=== PATIENT | female | born 1975 | race American Indian/Alaskan Native ===

== ENCOUNTER 2017-05-27 01:24 | Emergency (ER) | payer MEDICAID, OTHER ==
[2017-05-27 01:24] VITALS: BMI 23.8
[2017-05-27 01:39] VITALS: BP 128/81; PULSE 91; RESP 20; TEMP 98.7; O2SAT 97
[2017-05-27] MEDS ORDERED: Tetracaine 0.5% Ophth (OR ONLY) ONE (01:57)
[2017-05-27] MEDS ORDERED: Fluorescein 1 mg Ophthalmic Strip ONE (01:58)
[2017-05-27] MEDS ORDERED: Tetracaine 0.5% Ophth 2 ML BOTTLE OU ONE (02:00)
[2017-05-27] MEDS ORDERED: Fluorescein 1 mg Ophthalmic Strip OU ONE (02:00)
[2017-05-27] MEDS ORDERED: Tobramycin 0.3% OPH OINT OU STA (02:00)
--- NOTE | 2017-05-27 02:04 | C.PDOC ---
History Of Present Illness 42 y/o female presents to the ED complaining of left eye pain since this morning. States she slept with her contacts in last night and woke up with crusting and pain on opening the eye. No fever or chills. No foreign body sensation. (Mora Rincon) History Per: Patient History/Exam Limitations: no limitations Onset/Duration Of Symptoms: Days (x1) Current Symptoms Are (Timing): Still Present Wears Contact Lens?: Yes Time Seen by Provider: 05/27/17 01:47 Chief Complaint (Nursing): Eye Problem Past Medical History Reviewed: Historical Data, Nursing Documentation, Vital Signs - Medical History PMH: Anemia, HTN Denies: Diabetes, Hepatitis, HIV, Chronic Kidney Disease, Seizures, Sexually Transmitted Disease Other Surgeries: Ectopic surgery Family History: States: Unknown Family Hx - Social History Hx Tobacco Use: No Hx Alcohol Use: Yes Hx Substance Use: No - Immunization History Hx Tetanus Toxoid Vaccination: Yes Hx Influenza Vaccination: No Hx Pneumococcal Vaccination: No Vital Signs: Last Vital Signs Temp 98.7 F 05/27/17 01:36 Pulse 91 H 05/27/17 01:36 Resp 20 05/27/17 01:36 BP 128/81 05/27/17 01:36 Pulse Ox 97 05/27/17 04:27 Review Of Systems Except As Marked, All Systems Reviewed And Found Negative. Constitutional: Negative for: Fever Eyes: Positive for: Pain, Redness, Other (discharge). Negative for: Vision Change Physical Exam - Physical Exam Appears: Well, Non-toxic, No Acute Distress Skin: Normal Color, Warm, Dry Head: Atraumatic, Normacephalic Eye(s): bilateral: EOMI, right: Normal Inspection, left: Other (conjunctival injection, + purulent discharge. No fluorescein uptake) Nose: Normal Oral Mucosa: Moist Neurological/Psych: Oriented x3, Normal Speech, No Other (focal deficits) ED Course And Treatment O2 Sat by Pulse Oximetry: 97 (RA) Pulse Ox Interpretation: Normal Progress Note: Patient treated with Tobrex drops and Motrin. Will d/c with Ciprofloxacin drops. Advised to follow up with ophthalmology. Patient instructed to stop using contact lenses until further evaluation. Disposition - Disposition Disposition Time: 02:04 - Disposition Referrals: Tyler Banuelos [Staff Provider] - Disposition: HOME/ ROUTINE Condition: STABLE Additional Instructions: Stop wearing your contacts. Follow up with eye doctor in 1-2 days. Return to ER if symptoms persist or worsen. Prescriptions: Ciprofloxacin 0.3% [Ciloxan 0.3% Ophth SOLN] 2 drop OD Q4 #1 bottle Instructions: Conjunctivitis (Pinkeye) (DC) Forms: [employer] (Lao) - Clinical Impression Clinical Impression: Corneal abrasion - PA / [employer] / Resident Statement MD/DO has reviewed & agrees with the documentation as recorded. - Scribe Statement The provider has reviewed the documentation as recorded by the Scribe (Malathi Smith) - Scribe Statement All medical record entries made by the Scribe were at my direction and personally dictated by me. I have reviewed the chart and agree that the record accurately reflects my personal performance of the history, physical exam, medical decision making, and the department course for this patient. I have also personally directed, reviewed, and agree with the discharge instructions and disposition. (Mora Rincon)
== END 2017-05-27 02:30 | disposition home or self-care (01) ==
LOC: C.ER 01:24
DX: S05.02XA Injury of conjunctiva and corneal abrasion without foreign body, left eye, initial encounter (principal); X58.XXXA Exposure to other specified factors, initial encounter; Y92.9 Unspecified place or not applicable